=== PATIENT | female | born 1960 | race Caucasian/White ===

== ENCOUNTER → 2022-07-07 06:20 | Outpatient (CLI) | payer MEDICARE, SELFPAY ==
[2022-07-07 20:06] LABS: Alanine Aminotransferase 20 U/L (12-78); Albumin Level 4.1 g/dl (3.5-5.0); Albumin/Globulin Ratio 1.6 (1.1-1.8); Alkaline Phosphatase 118 U/L (38-126); Aspartate Amino Transferase 26 U/L (14-36); Bilirubin,Total 0.5 mg/dl (0.2-1.3); Blood Urea Nitrogen 10 mg/dl (7-17); Calcium 8.8 mg/dl (8.4-10.2); Carbon Dioxide 31 mmol/L (22.0-30.0); Chol/HDL Ratio 3.5 (1-3.5); Cholesterol 170 mg/dl (140-200); Estimated Glomerular Filt Rate 85 ml/min (>60); GFR (African American) 103 ML/MIN (>60); Globulin 2.6 g/dL (1.3-3.2); Glucose 126 mg/dl (74-100); HDL Cholesterol 48 mg/dl (40-60); Potassium 4.5 mmoL/L (3.5-5.1); Sodium 140 mmol/L (136-145); Total Protein,Serum 6.7 g/dl (6.3-8.2); Triglycerides 94 mg/dl (30-150); VLDL Cholesterol 19 mg/dL (0-40)
[2022-07-07 20:17] LABS: Direct LDL Cholesterol 99.16 mg/dL (100-129)
[2022-07-07 20:27] LABS: Anion Gap 13.5 mEq/L (5-15); Chloride 100 mmol/L (98-107)
[2022-07-07 20:33] LABS: Basophils # 0.1 K/mm3 (0-0.2); Basophils % 1.1 % (0.1-2.0); Eosinophils # 0.4 K/mm3 (0.0-0.4); Eosinophils % 5.1 % (0.1-12.0); Hematocrit 44.1 % (37.0-47.0); Hemoglobin 13.7 g/dL (12.2-16.2); Lymphocytes # 1.8 K/mm3 (0.7-4.5); Lymphocytes % 22.9 % (10-50); Mean Corpuscular HGB Conc 31.1 g/dL (31.8-35.4); Mean Corpuscular Hemoglobin 27.9 pg (27.0-31.2); Mean Corpuscular Volume 89.7 fl (81-99); Mean Platelet Volume 9.9 fl (7.4-10.4); Monocytes # 0.4 K/mm3 (0.1-1.0); Monocytes % 5.5 % (1.7-9.3); Neutrophils # 5.1 K/mm3 (1.8-7.8); Neutrophils % 65.3 % (37.0-80.0); Platelet Count 358 K/mm3 (142-424); Red Blood Count 4.92 M/mm3 (4.20-5.40); Red Cell Distribution Width 15.1 % (11.5-17.5); White Blood Count 7.9 K/mm3 (4.8-10.8)
[2022-07-07 21:01] LABS: Thyroid Stimulating Hormone 2.46 uIU/mL (0.465-4.68)
[2022-07-07 22:13] LABS: Hemoglobin A1C 5.9 % (4.0-6.0)
== END ==
PROVIDERS: PCP Family Medicine; Visit Provider Family Medicine
DX: E11.9 Type 2 diabetes mellitus without complications (principal); E78.5 Hyperlipidemia, unspecified; Z79.84 Long term (current) use of oral hypoglycemic drugs
CPT/HCPCS: 80053; 80061; 83036; 84443; 85025

== ENCOUNTER → 2022-11-04 09:20 | Outpatient (CLI) | payer MEDICARE, SELFPAY ==
[2022-11-04 19:24] LABS: Creatinine,Urine Random 172 mg/dL (Not Estab.); Microalbumin/Creatinine Ratio 13.6
== END ==
PROVIDERS: PCP Family Medicine; Visit Provider Family Medicine
DX: E11.9 Type 2 diabetes mellitus without complications (principal); E03.9 Hypothyroidism, unspecified; E78.5 Hyperlipidemia, unspecified; L30.9 Dermatitis, unspecified; Z79.84 Long term (current) use of oral hypoglycemic drugs; Z79.899 Other long term (current) drug therapy
CPT/HCPCS: 82043; 82570

== ENCOUNTER → 2023-05-05 23:27 | Outpatient (CLI) | payer MEDICARE, MEDICAID, SELFPAY ==
[2023-05-05 16:29] LABS: Basophils % 0.6 % (0.1-2.0); Eosinophils # 0.4 K/mm3 (0.0-0.4); Eosinophils % 4.8 % (0.1-12.0); Hematocrit 42.4 % (37.0-47.0); Lymphocytes # 1.7 K/mm3 (0.7-4.5); Lymphocytes % 22.1 % (10-50); Mean Corpuscular HGB Conc 30.7 g/dL (31.8-35.4); Mean Corpuscular Hemoglobin 26.8 pg (27.0-31.2); Mean Corpuscular Volume 87.4 fl (81-99); Mean Platelet Volume 9.4 fl (7.4-10.4); Monocytes # 0.4 K/mm3 (0.1-1.0); Monocytes % 5.3 % (1.7-9.3); Neutrophils # 5.1 K/mm3 (1.8-7.8); Neutrophils % 67.2 % (37.0-80.0); Platelet Count 288 K/mm3 (142-424); Red Blood Count 4.86 M/mm3 (4.20-5.40); White Blood Count 7.6 K/mm3 (4.8-10.8)
[2023-05-05 16:32] LABS: Alanine Aminotransferase 19 U/L (12-78); Albumin Level 4.1 g/dl (3.5-5.0); Albumin/Globulin Ratio 1.7 (1.1-1.8); Alkaline Phosphatase 96 U/L (38-126); Anion Gap 9.4 mEq/L (5-15); Aspartate Amino Transferase 23 U/L (14-36); Bilirubin,Total 0.6 mg/dl (0.2-1.3); Blood Urea Nitrogen 10 mg/dl (7-17); Calcium 8.8 mg/dl (8.4-10.2); Carbon Dioxide 31 mmol/L (22.0-30.0); Chloride 105 mmol/L (98-107); Chol/HDL Ratio 2.8 (1-3.5); Cholesterol 148 mg/dl (140-200); Estimated Glomerular Filt Rate 101 ml/min (>60); GFR (African American) 122 ML/MIN (>60); Globulin 2.4 g/dL (1.3-3.2); Glucose 120 mg/dl (74-100); HDL Cholesterol 52 mg/dl (40-60); Potassium 4.4 mmoL/L (3.5-5.1); Sodium 141 mmol/L (136-145); Total Protein,Serum 6.5 g/dl (6.3-8.2); Triglycerides 61 mg/dl (30-150); VLDL Cholesterol 12 mg/dL (0-40)
[2023-05-05 16:44] LABS: Direct LDL Cholesterol 83.21 mg/dL (100-129)
[2023-05-05 17:06] LABS: Thyroid Stimulating Hormone 5.06 uIU/mL (0.465-4.68)
[2023-05-05 18:20] LABS: Microalbumin/Creatinine Ratio 14.9
[2023-05-05 18:23] LABS: Creatinine,Urine Random 138 mg/dL (Not Estab.)
[2023-05-05 19:54] LABS: Hemoglobin A1C 6.1 % (4.0-6.0)
== END ==
PROVIDERS: PCP Family Medicine; Visit Provider Family Medicine
DX: I10 Essential (primary) hypertension (principal); E11.9 Type 2 diabetes mellitus without complications; Z00.00 Encounter for general adult medical examination without abnormal findings; E03.9 Hypothyroidism, unspecified; Z79.84 Long term (current) use of oral hypoglycemic drugs
CPT/HCPCS: 80053; 80061; 82043; 82570; 83036; 84443; 85025

== ENCOUNTER → 2023-05-12 10:27 | Outpatient (CLI) | payer MEDICARE, MEDICAID, SELFPAY ==
--- NOTE | 2023-05-12 10:27 | MM_ITS ---
PROCEDURE INFORMATION: Exam: MG Bilateral Screening 3D Mammography Exam date and time: 05/12/2023 10:18 AM Age: 63 years old Clinical indication: Screening mammogram. No personal or family history of breast cancer TECHNIQUE: Imaging protocol: Bilateral Screening tomosynthesis and 2D mammography including computer-aided detection (CAD) when performed. COMPARISON: No relevant prior studies available. FINDINGS: MAMMOGRAPHY: Breast composition: The breast is heterogeneously dense, which may obscure small masses. Mass: None. Architectural distortion: No new or suspicious architectural distortion. Calcifications: No new or suspicious calcifications are present Asymmetric density: No new or suspicious asymmetric density is present Skin thickening: None. Axillary adenopathy: None. IMPRESSION: No mammographic evidence of malignancy. Recommend annual screening mammography unless otherwise clinically indicated. ASSESSMENT: BI-RADS category 1: Negative
== END ==
PROVIDERS: PCP Family Medicine; Visit Provider Family Medicine
DX: Z12.31 Encounter for screening mammogram for malignant neoplasm of breast (principal)
CPT/HCPCS: 77063; 77067

== ENCOUNTER → 2023-07-09 23:27 | Outpatient (CLI) | payer MEDICARE, MEDICAID, SELFPAY ==
[2023-07-09 17:37] LABS: Thyroid Stimulating Hormone 3.93 uIU/mL (0.465-4.68)
== END ==
PROVIDERS: PCP Family Medicine; Visit Provider Family Medicine
DX: E03.9 Hypothyroidism, unspecified (principal)
CPT/HCPCS: 84443

== ENCOUNTER → 2023-10-12 07:26 | Outpatient (CLI) | payer MEDICARE, MEDICAID, SELFPAY ==
[2023-10-12 17:03] LABS: Hemoglobin A1C 6.1 % (4.0-6.0)
[2023-10-12 17:30] LABS: Thyroid Stimulating Hormone 2.18 uIU/mL (0.465-4.68)
== END ==
PROVIDERS: PCP Family Medicine; Visit Provider Family Medicine
DX: E11.9 Type 2 diabetes mellitus without complications (principal); Z79.84 Long term (current) use of oral hypoglycemic drugs
CPT/HCPCS: 83036; 84443

== ENCOUNTER 2024-02-04 18:00 | Outpatient (CLI) | payer MEDICARE, MEDICAID, SELFPAY ==
[2024-02-04 16:46] LABS: Chol/HDL Ratio 2.9 (1-3.5); Cholesterol 125 mg/dl (140-200); HDL Cholesterol 43 mg/dl (40-60); Triglycerides 70 mg/dl (30-150); VLDL Cholesterol 14 mg/dL (0-40)
[2024-02-04 16:58] LABS: Direct LDL Cholesterol 63.13 mg/dL (100-129)
[2024-02-04 17:10] LABS: Hemoglobin A1C 6.4 % (4.0-6.0)
[2024-02-04 17:16] LABS: Creatinine,Urine Random 140 mg/dL (Not Estab.)
[2024-02-04 17:18] LABS: Microalbumin/Creatinine Ratio 10.4; Thyroid Stimulating Hormone 1.87 uIU/mL (0.465-4.68)
== END 2024-02-04 23:59 | disposition home or self-care (01) ==
LOC: LAB.DROPOF 02-05 08:58
PROVIDERS: PCP Family Medicine; Visit Provider Family Medicine
DX: E11.9 Type 2 diabetes mellitus without complications (principal); E03.9 Hypothyroidism, unspecified
CPT/HCPCS: 80061; 82043; 82570; 83036; 84443

== ENCOUNTER 2024-05-05 16:31 | Outpatient (CLI) | payer MEDICARE, MEDICAID, SELFPAY ==
[2024-05-05 17:00] LABS: Basophils # 0.1 K/mm3 (0-0.2); Basophils % 0.7 % (0.1-2.0); Eosinophils # 0.2 K/mm3 (0.0-0.4); Eosinophils % 2.9 % (0.1-12.0); Hematocrit 40.3 % (37.0-47.0); Lymphocytes # 1.7 K/mm3 (0.7-4.5); Lymphocytes % 24.8 % (10-50); Mean Corpuscular HGB Conc 32.2 g/dL (31.8-35.4); Mean Corpuscular Hemoglobin 28.4 pg (27.0-31.2); Mean Corpuscular Volume 88.3 fl (81-99); Mean Platelet Volume 9.5 fl (7.4-10.4); Monocytes # 0.4 K/mm3 (0.1-1.0); Monocytes % 5.9 % (1.7-9.3); Neutrophils # 4.4 K/mm3 (1.8-7.8); Neutrophils % 65.7 % (37.0-80.0); Platelet Count 266 K/mm3 (142-424); Red Blood Count 4.56 M/mm3 (4.20-5.40); Red Cell Distribution Width 15.4 % (11.5-17.5); White Blood Count 6.7 K/mm3 (4.8-10.8)
[2024-05-05 17:12] LABS: Alanine Aminotransferase 17 U/L (12-78); Albumin Level 4.2 g/dl (3.5-5.0); Albumin/Globulin Ratio 1.6 (1.1-1.8); Alkaline Phosphatase 112 U/L (38-126); Anion Gap 7.2 mEq/L (5-15); Aspartate Amino Transferase 19 U/L (14-36); Bilirubin,Total 0.7 mg/dl (0.2-1.3); Blood Urea Nitrogen 12 mg/dl (7-17); Calcium 9.2 mg/dl (8.4-10.2); Carbon Dioxide 31 mmol/L (22.0-30.0); Chloride 106 mmol/L (98-107); Chol/HDL Ratio 2.5 (1-3.5); Cholesterol 128 mg/dl (140-200); Estimated Glomerular Filt Rate 101 ml/min (>60); GFR (African American) 122 ML/MIN (>60); Globulin 2.7 g/dL (1.3-3.2); Glucose 117 mg/dl (74-100); HDL Cholesterol 51 mg/dl (40-60); Potassium 4.2 mmoL/L (3.5-5.1); Sodium 140 mmol/L (136-145); Total Protein,Serum 6.9 g/dl (6.3-8.2); Triglycerides 60 mg/dl (30-150); VLDL Cholesterol 12 mg/dL (0-40)
[2024-05-05 17:41] LABS: Thyroid Stimulating Hormone 2.08 uIU/mL (0.465-4.68)
[2024-05-05 18:44] LABS: Hemoglobin A1C 5.9 % (4.0-6.0)
== END 2024-05-05 23:59 | disposition home or self-care (01) ==
LOC: LAB.DROPOF 16:32
PROVIDERS: PCP Nurse Practitioner Family; Visit Provider Nurse Practitioner Family
DX: E11.9 Type 2 diabetes mellitus without complications (principal); E03.9 Hypothyroidism, unspecified
CPT/HCPCS: 80050; 80053; 80061; 83036; 84443; 85025

== ENCOUNTER 2024-11-04 10:50 | Outpatient (CLI) | payer MEDICARE, MEDICAID, SELFPAY ==
[2024-11-04 16:33] LABS: Basophils % 0.4 % (0.1-2.0); Eosinophils # 0.2 K/mm3 (0.0-0.4); Eosinophils % 2.5 % (0.1-12.0); Hematocrit 41.8 % (37.0-47.0); Lymphocytes # 1.5 K/mm3 (0.7-4.5); Mean Corpuscular HGB Conc 31.1 g/dL (31.8-35.4); Mean Corpuscular Hemoglobin 27.7 pg (27.0-31.2); Mean Corpuscular Volume 89.1 fl (81-99); Mean Platelet Volume 10.6 fl (7.4-10.4); Monocytes # 0.5 K/mm3 (0.1-1.0); Monocytes % 6.1 % (1.7-9.3); Neutrophils % 68.6 % (37.0-80.0); Platelet Count 288 K/mm3 (142-424); Red Blood Count 4.69 M/mm3 (4.20-5.40); Red Cell Distribution Width 14.3 % (11.5-17.5); White Blood Count 7.3 K/mm3 (4.8-10.8)
[2024-11-04 16:48] LABS: Hemoglobin A1C 6.1 % (4.0-6.0)
[2024-11-04 17:01] LABS: Alanine Aminotransferase 20 U/L (12-78); Albumin Level 4.4 g/dl (3.5-5.0); Alkaline Phosphatase 100 U/L (38-126); Anion Gap 14.5 mEq/L (5-15); Aspartate Amino Transferase 26 U/L (14-36); Bilirubin,Total 0.8 mg/dl (0.2-1.3); Blood Urea Nitrogen 10 mg/dl (7-17); Calcium 9.3 mg/dl (8.4-10.2); Carbon Dioxide 29 mmol/L (22.0-30.0); Chloride 101 mmol/L (98-107); Chol/HDL Ratio 2.3 (1-3.5); Cholesterol 123 mg/dl (140-200); Estimated Glomerular Filt Rate 101 ml/min (>60); GFR (African American) 122 ML/MIN (>60); Globulin 2.2 g/dL (1.3-3.2); Glucose 83 mg/dl (74-100); HDL Cholesterol 53 mg/dl (40-60); Potassium 4.5 mmoL/L (3.5-5.1); Sodium 140 mmol/L (136-145); Total Protein,Serum 6.6 g/dl (6.3-8.2); Triglycerides 70 mg/dl (30-150); VLDL Cholesterol 14 mg/dL (0-40)
[2024-11-04 17:12] LABS: Direct LDL Cholesterol 60.09 mg/dL (100-129)
[2024-11-04 17:18] LABS: 25-OH Vitamin D, Total 24.8 ng/mL (30-100)
[2024-11-04 17:26] LABS: Creatinine,Urine Random 101 mg/dL (Not Estab.)
[2024-11-04 17:33] LABS: Thyroid Stimulating Hormone 2.84 uIU/mL (0.465-4.68)
== END 2024-11-04 23:59 | disposition home or self-care (01) ==
LOC: LAB.DROPOF 11-07 10:52
PROVIDERS: PCP Nurse Practitioner Family; Visit Provider Nurse Practitioner Family
DX: E11.9 Type 2 diabetes mellitus without complications (principal); E55.9 Vitamin D deficiency, unspecified; E78.5 Hyperlipidemia, unspecified; E03.9 Hypothyroidism, unspecified; R03.0 Elevated blood-pressure reading, without diagnosis of hypertension
CPT/HCPCS: 80053; 80061; 82043; 82306; 82570; 83036; 84443; 85025

== ENCOUNTER 2024-11-11 10:25 | Outpatient (CLI) | payer MEDICARE, MEDICAID, SELFPAY ==
--- NOTE | 2024-11-11 10:26 | MM_ITS ---
PROCEDURE INFORMATION: Exam: MG Bilateral Screening 3D Mammography Exam date and time: 11/11/2024 10:12 AM Age: 64 years old Clinical indication: Screening examination. TECHNIQUE: Imaging protocol: Bilateral Screening tomosynthesis and 2D mammography including computer-aided detection (CAD) when performed. COMPARISON: MG MM DIG SCREENING MAMM BI W/CAD 05/12/2023 10:18 AM FINDINGS: MAMMOGRAPHY: Breast composition: There are scattered areas of fibroglandular density. Mass: No suspicious masses. Architectural distortion: No suspicious distortion. Calcifications: No suspicious calcifications. Asymmetric density: Questionable 1 cm asymmetry in the medial right breast, middle depth, only well seen on CC frame 13. Skin thickening: None. Axillary adenopathy: None. IMPRESSION: 1. Recommend right breast spot compression CC/MLO view, full field true lateral view and ultrasound for further evaluation of a questionable asymmetry in the medial right breast. 2. No definite mammographic evidence of malignancy in the left breast. ASSESSMENT: BI-RADS Category 0: Incomplete- Need Additional Imaging Evaluation.
== END 2024-11-11 23:59 | disposition home or self-care (01) ==
LOC: RAD 10:26
PROVIDERS: PCP Nurse Practitioner Family; Visit Provider Nurse Practitioner Family
DX: Z12.31 Encounter for screening mammogram for malignant neoplasm of breast (principal)
CPT/HCPCS: 77063; 77067

== ENCOUNTER 2024-12-01 12:40 | Outpatient (CLI) | payer OTHER, MEDICAID, SELFPAY ==
--- NOTE | 2024-12-01 12:40 | US_ITS ---
PROCEDURE INFORMATION: Exam: US Right Breast, Complete MG Right Diagnostic Breast Tomosynthesis Exam date and time: 12/01/2024 1:05 PM Age: 64 years old Clinical indication: Callback from screening for right breast asymmetry TECHNIQUE: Imaging protocol: Complete ultrasound of all four quadrants of the right breast and the retroareolar regions, including ultrasound of the axilla when performed. Right Diagnostic tomosynthesis and 2D mammography including computer-aided detection (CAD) when performed. Unilateral or bilateral exam. COMPARISON: 1. MG MM DIG SCREENING MAMM BI W/CAD 11/11/2024 10:12 AM 2. MG MM DIG SCREENING MAMM BI W/CAD 05/12/2023 10:18 AM FINDINGS: MAMMOGRAPHY: Breast composition: There are scattered areas of fibroglandular density. Breast mammogram findings: Right breast spot compression and 90 degree lateral tomosynthesis views were obtained. There is a persistent equal density irregular mass with surrounding spiculation in the medial right breast measuring roughly 1 cm.Elsewhere, there are no suspicious masses or calcifications in the partially visualized breast. No abnormal lymph nodes in the partially visualized axilla. ULTRASOUND: Breast ultrasound findings: Right breast ultrasound: At 4 o'clock 2 cm from the nipple there is an irregular hypoechoic mass measuring 0.7 x 0.6 x 1.0 cm corresponding to the mammographically questioned. Immediately adjacent to this is an indeterminate similar-appearing structure measuring 0.4 cm. Benign simple cyst at 9 o'clock measuring 0.4 cm. No abnormal lymph nodes in the axilla IMPRESSION: Irregular right breast mass 4 o'clock is suspicious. There is similar-appearing structure immediately adjacent to the index lesion measuring 0.4 cm. Recommend ultrasound-guided needle biopsy. ASSESSMENT: BI-RADS Category 4: Suspicious.
== END 2024-12-01 23:59 | disposition home or self-care (01) ==
LOC: RAD 12:40
PROVIDERS: PCP Nurse Practitioner Family; Visit Provider Nurse Practitioner Family
DX: R92.8 Other abnormal and inconclusive findings on diagnostic imaging of breast (principal)
CPT/HCPCS: 76641; 77061; 77065; G0279

== ENCOUNTER 2025-01-02 07:30 | Outpatient (CLI) | payer OTHER, MEDICAID, SELFPAY | END 2025-01-02 23:59 | disposition home or self-care (01) | LOC: RAD 07:31 | PROVIDERS: PCP Nurse Practitioner Family; Visit Provider Nurse Practitioner Family | DX: R92.8 Other abnormal and inconclusive findings on diagnostic imaging of breast (principal) | CPT/HCPCS: 19083; 77065; C2618 ==

== ENCOUNTER 2025-01-13 10:02 | Outpatient (CLI) | payer OTHER, MEDICAID, SELFPAY ==
--- NOTE | 2025-01-13 10:23 | ECG_ITS ---
APPROVED REPORT Exam: Resting ECG HR:70 bpm ECG Measurements Heart Rate 70 AXES MA 147 P 32 QRSd 85 QRS 31 QT 401 T 52 QTc 422 Conclusion SINUS RHYTHM LOW QRS VOLTAGE IN PRECORDIAL LEADS [QRS DEFLECTION < 1.0 mV IN CHEST LEADS] BORDERLINE ECG UNCONFIRMED REPORT Electronically signed by : Albin Montiel MD 01/14/2025 19:34:35
[2025-01-13 10:36] LABS: Basophils # 0.1 K/mm3 (0-0.2); Basophils % 0.7 % (0.1-2.0); Eosinophils # 0.1 K/mm3 (0.0-0.4); Eosinophils % 1.3 % (0.1-12.0); Hematocrit 40.3 % (37.0-47.0); Hemoglobin 13.1 g/dL (12.2-16.2); Lymphocytes # 1.3 K/mm3 (0.7-4.5); Lymphocytes % 17.1 % (10-50); Mean Corpuscular HGB Conc 32.5 g/dL (31.8-35.4); Mean Corpuscular Hemoglobin 27.9 pg (27.0-31.2); Mean Corpuscular Volume 85.9 fl (81-99); Mean Platelet Volume 10.3 fl (7.4-10.4); Monocytes # 0.5 K/mm3 (0.1-1.0); Monocytes % 6.2 % (1.7-9.3); Neutrophils # 5.5 K/mm3 (1.8-7.8); Neutrophils % 72.9 % (37.0-80.0); Platelet Count 289 K/mm3 (142-424); Red Blood Count 4.69 M/mm3 (4.20-5.40); Red Cell Distribution Width 13.8 % (11.5-17.5); White Blood Count 7.6 K/mm3 (4.8-10.8)
[2025-01-13 10:40] LABS: Anion Gap 9.4 mEq/L (5-15); Blood Urea Nitrogen 8 mg/dl (7-17); Calcium 9.1 mg/dl (8.4-10.2); Carbon Dioxide 30 mmol/L (22.0-30.0); Chloride 105 mmol/L (98-107); Estimated Glomerular Filt Rate 101 ml/min (>60); GFR (African American) 122 ML/MIN (>60); Glucose 114 mg/dl (74-100); Potassium 4.4 mmoL/L (3.5-5.1); Sodium 140 mmol/L (136-145)
== END 2025-01-13 23:59 | disposition home or self-care (01) ==
LOC: PREOP 10:03
PROVIDERS: PCP Family Medicine; Visit Provider Surgery
DX: Z01.810 Encounter for preprocedural cardiovascular examination (principal); C50.911 Malignant neoplasm of unspecified site of right female breast; R94.31 Abnormal electrocardiogram [ECG] [EKG]
CPT/HCPCS: 80048; 85025; 93005

== ENCOUNTER 2025-02-02 08:12 | Outpatient (CLI) | payer OTHER, MEDICAID, SELFPAY ==
[2025-02-02 18:07] LABS: 25-OH Vitamin D, Total 47.7 ng/mL (30-100)
== END 2025-02-02 23:59 | disposition home or self-care (01) ==
LOC: LAB.DROPOF 02-03 08:47
PROVIDERS: PCP Nurse Practitioner Family; Visit Provider Nurse Practitioner Family
DX: E55.9 Vitamin D deficiency, unspecified (principal); E11.9 Type 2 diabetes mellitus without complications; Z79.84 Long term (current) use of oral hypoglycemic drugs
CPT/HCPCS: 82306; 83036

== ENCOUNTER 2025-02-10 07:33 | Day surgery (SDC) | payer OTHER, MEDICAID, SELFPAY ==
[2025-01-13 12:44] VITALS: BMI 30.6
[2025-02-10] VITALS (10 sets, daily range): BP systolic 148–174; BP diastolic 78–91; PULSE 92–104; RESP 14–18; TEMP 35.9–36.7; O2SAT 93–97
--- NOTE | 2025-02-10 | MM_ITS ---
FINAL REPORT CLINICAL HISTORY: s/p needle loc in ultrasound, specimen from OR FINDINGS: Specimen radiograph HISTORY: Needle localization for breast cancer FINDINGS: Specimen radiograph shows abnormal density adjacent to the breast biopsy marker clip and hook wire well contained within the specimen. IMPRESSION: Specimen radiograph confirms removal of lesion of interest along with the biopsy marker clip Authenticated and ERN
[2025-02-10] MEDS: 0.9 % SODIUM CHLORIDE 1000ML 1,000 ML 25 ML IV (08:11)
--- NOTE | 2025-02-10 08:18 | P.PNANES_ITS ---
[facility] Disclaimer: The information contained in this section may have been updated after the patient was seen, as this information can be updated by other users. Medical History HLD (hyperlipidemia) Osteoarthritis Hypothyroidism Diabetes mellitus Surgical History History of delivery History of dental surgery Family History Father Heart attack Brother Heart attack Diabetes Hypertension Social History Smoking Status: Never smoker alcohol intake: never substance use type: denies use current occupational status: unemployed Travel in the last 8 weeks: None [facility] Anesthesia Checklist Patient Identification Patient Identification: Verbal (Name & ) Structural Data Admitted From: Home Planned Operative Procedure/s: Right breast biopsy, sentinel lymph node Consent for Planned Operative Procedure(s) Verified: Yes Verified Documents: Surgical Consent NPO Status Verified Time NPO: 00:00 Chart Verification Results Verified: CBC and H & H Additional verifications Fingerstick Blood Glucose: 123 Patient : No Anesthesia Reactions: No Hx Blood Transfusions: No Blood Transfusion Reaction: No Cephalosporin Allergy: No Airway Assessment Mallampati Score:: Class II C-Spine Mobility Assessed: Yes Dentition: Edentulous Neurological Assessment Level of Consciousness: Awake, Alert and Appropriate Hx Seizures: No Numbness or tingling in extremities: No Anesthesia Plan Anesthesia Risk discussed: Yes Anesthesia Plan: Verified ASA Class: II Anesthesia Type: General
--- NOTE | 2025-02-10 08:30 | US_ITS ---
FINAL REPORT CLINICAL HISTORY: Rt breast cancer -- RT NEEDLE LOC -- DR DENNISE GONSALEZ --4:00 FINDINGS: Ultrasound-guided hookwire localization procedure HISTORY: Breast cancer. Request for localization of breast lesion/biopsy marker. FINDINGS: Abnormality of interest was localized within the right breast at approximately 4:00 with a small echogenic focus presumably representing a biopsy marker clip. Using sterile technique and local anesthesia a 7 cm Kopan's needle was directed toward the lesion of interest from a lateral approach. The portion of the wire was noted to be positioned within the mass. Marker was placed on the skin denoting the location of the lesion separate from the hook wire entry site. Post wire localization mammogram showed the required to be in good position immediately adjacent to the biopsy marker clip. IMPRESSION: Technically successful ultrasound-guided wire localization of right breast mass and biopsy marker clip Authenticated and ERN
--- NOTE | 2025-02-10 09:00 | NM_ITS ---
FINAL REPORT CLINICAL HISTORY: Rt breast cancer FINDINGS: SENTINEL NODE INJECTION HISTORY: Right breast cancer Attending radiologist: Dr. Milian Physician Automotive Service Advisor: Sukhdev Thomas PA-C FINDINGS: After informed consent was obtained and time-out procedure performed, approximately 1.55 mCi of technetium 99m sulfur colloid was injected intradermally into the right breast. Injections were performed in a periareolar fashion. No films were obtained during this procedure. The patient tolerated the procedure with no immediate complications. IMPRESSION: Lisle node injection of the right breast as discussed above. Reviewed, Interpreted and Dictated by Zhanna Milian MD Transcribed by TE Martini Authenticated and [facility]
--- NOTE | 2025-02-10 09:23 | MM_ITS ---
FINAL REPORT CLINICAL HISTORY: s/p needle loc in ultrasound FINDINGS: RIGHT DIGITAL MAMMOGRAPHY CLINICAL INDICATION: Right breast cancer. Requires localization procedure. TECHNIQUE: Right standard views were obtained with 2-D digital acquisitions. COMPARISON: Recent preoperative screening mammogram DENSITY: There are scattered areas of fibroglandular density FINDINGS: The hookwire is seen in good position adjacent to a biopsy marker clip located at 4:00. There is associated focal asymmetry. IMPRESSION: Successful wire localization of a known left breast cancer BI-RADS 6: Known biopsy proven cancer. RECOMMENDED FOLLOW-UP: Surgical follow-up Authenticated and ERN
[2025-02-10] MEDS: TC99M SULF.COLLOID;1 DOSE (UP TO 20 MCI) IV (09:30)
[2025-02-10] MEDS: METHYLENE BLUE 0.5% 10ML AMPULE 50 MG IV (10:28)
[2025-02-10] MEDS: LIDOCAINE 1% 20ML MDV 20 ML (10:28)
[2025-02-10] MEDS: CEFAZOLIN SODIUM 2 GM in 0.9 % SODIUM CHLORIDE 100 ML IV (10:30)
--- NOTE | 2025-02-10 11:48 | EXP.COCOPNOT ---
Date of procedure: 02/10/25 Pre-op Diagnosis:: Right breast cancer Post-op Diagnosis:: Same Procedure performed:: Right needle-localized excisional breast biopsy Right axillary sentinel lymph node biopsy Surgeon:: Kaushik Landis MD Anesthesia: LMA Estimated blood loss (mL): 15 Operative findings:: [place] lymph node with excellent radioisotope uptake [place] node target count 11,213 Minimal background noted after sentinel node excised Radiographic confirmation of complete breast lesion removal Operative note:: After informed consent was obtained the patient was taken to the radiology suite. A localization needle was placed in position. Please see separate radiology report for detail. She then underwent injection of radioisotope. Please see separate report for detail. She was then transferred to the operative suite after appropriate delay to allow for radioisotope uptake. Her right breast and axillary region was prepped and draped in a sterile fashion. After infiltration with local anesthetic incision was made overlying the point of maximal uptake confirmed via the neoprobe device. The underlying subcutaneous tissue was dissected with a combination of sharp dissection and electrocautery. A targeted node/nodes was carefully elevated and transected from surrounding tissue utilizing electrocautery. The transected tissue had a target count of 11,213. The neoprobe was placed into the operative wound. Minimal background noted. The deep subcutaneous tissue was reapproximated with interrupted Vicryl and skin was then closed with 4-0 Monocryl in a running subcuticular manner. Dressings were applied. Attention was then turned to the breast lesion. A subareolar incision was made after infiltration of local anesthetic. A combination of sharp dissection and electrocautery was utilized to transect around the localization needle. The lesion was excised and passed off for both pathologic evaluation and radiographic confirmation. The lesion was marked for margin prior to it leaving the operative field. Non-dyed suture was utilized to willian the superior and lateral margins (short superior/long lateral). Dyed suture was utilized to willian the superficial and deep margins (short superficial/long deep). Note that confirmation was received from the radiology department that the lesion of interest was contained within the specimen. Electrocautery was utilized to achieve hemostasis. The wound base and margins were marked with metallic clips. The deep subcutaneous tissue was reapproximated with interrupted Vicryl and skin was closed with 3-0 Monocryl STRATAFIX in a subcuticular manner. Dressings were applied and the patient was transferred to recovery in stable condition. Condition: stable Disposition: PACU Specimens:: Right axillary sentinel lymph node (target count 11,213) Needle-localized right breast excisional biopsy Complications:: No immediate Breast Cancer SLNB Operation performed with curative intent: Yes Tracers used in non-neoadjuvant setting to identify nodes: Dye and Radioactive tracer Tracer used to identify nodes in neoadjuvant setting: N/A All nodes at end of dye-filled lymphatic channel removed: Yes All significantly radioactive nodes were removed: Yes All palpably suspicious nodes were removed: Yes Biopsy positive nodes marked prior to chemo were removed: N/A
--- NOTE | 2025-02-10 11:58 | EXP.ANES.I ---
[facility] Anesthesia Record Part I Anesthesia Record I Intake, IV Amount: 800 Hydration: Adequate Estimated blood loss (mL): 10 Urine output (mL): 0 Blood Pressure: 156/83 SaO2: 96 Pulse Rate: 96 Airway Patency: Patent Respiratory Rate: 18 Temperature: 98 F Patient is:: Awake and Stable Stable to PACU at:: 12:03
--- NOTE | 2025-02-10 12:19 | SUR.PHASEI ---
pt glasses placed on patient at this time and pt removed from the bare hugger. no complaints/needs reported at this time
--- NOTE | 2025-02-10 12:26 | SUR.PHASEI ---
pt glucose 126 at this time. denies any pain
[2025-02-10 12:32] LABS: POC Glucose,Bedside 126 (70-110)
--- NOTE | 2025-02-10 13:34 | EXP.ANES.II ---
[facility] Anesthesia Record Part II Anesthesia Record Part II Discharge Time: 12:25 Destination: Surgical Day Care (OP Surgery) PACU nurse assessment reviewed?: Yes Patient Condition:: Good Anesthesia Complications:: None Swallowing reflex intact?: Yes Airway Patency: Patent Cyanosis?: No Blood Pressure: 158/89 SaO2: 94 Respiratory Rate: 15 Pulse Rate: 101 Temperature: 98.1 F Mental Status: Alert & Oriented Pain level:: 0 Nausea and/or vomitting:: None Intake, IV Amount: 0 Hydration: Adequate
[2025-02-10 14:52] LABS: POC Glucose,Bedside 124 (70-110)
== END 2025-02-10 13:07 | disposition home or self-care (01) ==
PROVIDERS: PCP Nurse Practitioner Family; Visit Provider Surgery
PROC: (CPT 19125; principal; 2025-02-10 09:10)
DX: D05.11 Intraductal carcinoma in situ of right breast (principal); E11.9 Type 2 diabetes mellitus without complications; E03.9 Hypothyroidism, unspecified; Z79.84 Long term (current) use of oral hypoglycemic drugs; Z79.899 Other long term (current) drug therapy
CPT/HCPCS: 19125; 38525; 19285; 38792; 76098; 77061; 77065; 82962; 88307; 96374; A9541; G0279; J0690; J1100; J1200; J2003; J2371; J2405; J2704; J3010; J7030

== ENCOUNTER 2025-04-06 09:01 | Outpatient (CLI) | payer OTHER, MEDICAID, SELFPAY ==
--- OUTSIDE RECORDS SUMMARY | 2025-04-06 09:12 | XMS_ITS | Data Portability ---
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 She is agreeable to receive postoperative radiation therapy with hypofractionation technique to treat the entire breast with high axilla for a dose of 4256 cGy to be delivered by 16 fractions by 3D planning to be followed by a boost to lumpectomy site for an additional 1000 cGy to be delivered by 5 fractions by 3D planning. To be followed by [facility] for 5 years. Patient was told about side effects including skin irritation possible dry or moist desquamation possibility of scar tissue rarely rib fractions or 2nd malignancy with 3D planning minimize radiation to the right lung prognosis good. Interview and review of records lasted for 60 minutes. Thanks for allowing us participate in the care of this pleasant patient. [email or web address] Not available 04/04/2025 13:52:27 Plan of Treatment Reminders Order Date Submit Date Provider Last Modified By Organization Details Last Modified Time Details Appointments None recorded. Lab None recorded. Referral oncology patient navigator 2024 025 ROBINSON Bianchi Oncology Nurse Navigator, [address] [place] [address] , [address], [place], [address], 5 15:43:54 Procedures None recorded. Surgeries None recorded. Imaging None recorded. Medication Orders None recorded. Patient TargetsNo targets recorded. Patient InstructionsNo instructions recorded. Reason for Referral Oncology Patient Navigator f or Malignant neoplasm of lower inner quadrant of breast Referring Physician: Tad Vail, Radiation Oncology, Encounter Date: 04/04/2025 Problems Name Problem SNOMED Code Status Onset Date Resolution Date Notes Provider Name and Address Organization Details Recorded Time Malignant neoplasm of lower inner quadrant of breast 483588750 Active 025 Michelle Sherwood [facility] 5 15:06:56 Problem Notes None recorded. Medical Equipment None Reported. Allergies No known drug allergies Medications Name Sig Start Date Stop Date Status Note LastModified by Organization Details LastModified Time metformin 500 mg tablet Take 1 tablet every day by oral route. active Not Available Not Available No t Available cetirizine 10 mg tablet Take 1 tablet every day by oral route as needed. active Not Available Not Available No t Available atorvastat in 10 mg tablet Take 1 tablet every day by oral route. active Not Available Not Available No t Available hydrocodon e 5 mg-acetami nophen 325 mg tablet TAKE 1 TABLET EVERY 6 HOURS NEEDED FOR PAIN AFTER AN OPERATION active Not Available Not Available No t Available ondansetro n HCl 4 mg tablet TAKE 1 TABLET EVERY 6 HOURS NEEDED FOR NAUSEA AND VOMITING active Not Available Not Available No t Available omeprazole 40 mg capsule,de layed release Take 1 capsule every day by oral route. active Not Available Not Available No t Available famotidine 20 mg tablet Take 1 tablet every day by oral route. active Not Available Not Available No t Available oseltamivi r 75 mg capsule TAKE 1 CAPSULE EVERY 12 HOURS FOR 5 DAYS active Not Available Not Available No t Available promethazi ne 25 mg tablet TAKE 1 TABLET EVERY 4 HOURS NEEDED active Not Available Not Available No t Available Arimidex 1 mg tablet Take 1 tablet every day by oral route. active To begin after completio n of RTX for a total of 5 years Not Available Not Available Not Available montelukas t 10 mg tablet TAKE 1 TABLET 1 TIME EACH DAY active Not Available Not Available No t Available furosemide 20 mg tablet Take 1 tablet every day by oral route. active Not Available Not Available No t Available fluticason e propionate 50 mcg/actuat ion nasal spray,susp ension SPRAY 1 TIME IN EACH NOSTRIL 1 TIME EACH DAY active Not Available Not Available No t Available levothyrox ine 112 mcg tablet TAKE 1 TABLET ONCE A DAY IN THE MORNING ON AN EMPTY STOMACH active Not Available Not Available No t Available montelukas t TAKE 1 TAB PO DAILY active Not Available Not Available No t Available fluticason e propionate active Not Available Not Available N ot Available levothyrox ine 112 mcg capsule Take 1 capsule every day by oral route. active Not Available Not Available No t Available cholecalci ferol (vit D3) 137.5 mcg (5,500 unit)-vit K2 200 mcg tablet Take 1 tablet every day by oral route. active Not Available Not Available No t Available Vitals None Recorded Social History Question Answer Notes LastModified by [employer] Details LastModified Time Tobacco Smoking Status Never Smoker Michelle Gomez [facility] 04/03/2025 14:54:31 What Was The Date Of Your Most Recent Tobacco Screening? 04/03/2025 Information not available 04/03/2025 Has Tobacco Cessation Counseling Been Provided? No Information not available 04/03/2025 Sex: Unknown Functional Status Question Answer Note LastModified by [employer] Details LastModified Time Do you use any illicit or recreational drugs? No Information not available 04/03/2025 Do you or have you ever used any other forms of tobacco or nicotine? No Information not available 04/03/2025 What is your level of alcohol consumption? None Information not available 04/03/2025 Mental Status None recorded. Family History Relationship Description Onset Age of this Age Resolved Age Notes LastModified by Organization Details LastModified Time Father Myocardial infarction [email or web address] Not available 06/2025 14:52:45 Brother Myocardial infarction [email or web address] Not available 06/2025 14:52:45 Brother Diabetes mellitus nparkerrose Not available 06/2025 14:53:00 Brother Essential hypertension nparkerrose Not available 0 04/03/2025 14:53:29 Medical History Condition Response None Y Gynecological HistoryNo gynecological history recorded. Obstetrics History GPAL:G 0 P 0 0 0 0 Past Encounters Encounter ID Performer Location Encounter Start Date Encounter Closed Date Diagnosis/Indication Diagnosis SNOMED-CT Code Diagnosis ICD10 Code Diagnosis Note [id number] MD [facility] [address] [place] [phone] [id number] 04/04/2025 13:20:45 04/04/2025 15:19:32 Malignant neoplasm of lower inner quadrant of breast 172203543 C50.311 Z17.0 Health Concerns Section Related Observation LastModified by Organization Detai ls LastModified Time None Recorded Concern Status LastModified by Organization Details LastModified Time None Recorded Advance Directives Directive None Recorded Payers Insurance Date Sequence Insurance Name Policy Number Policy Frias Covered Member ID Frias Member ID Guarantor Name 04/04/2025 1 [employer] (MEDICARE REPLACEMENT/ ADVANTAGE - PPO) [id number] Deisy Huizar [id number] Deisy Huizar 04/04/2025 [place]IT[place] Deisy Huizar [id number] Deisy Huizar 04/04/2025 2 MEDICAID-[facility] CHOICES - FFS/TRADITIO NAL Deisy Huizar [id number] Deisy Huizar 04/04/2025 1 [employer] (MEDICARE REPLACEMENT/ ADVANTAGE - PPO) Deisy Huizar [id number] Deisy Huizar Notes Date Note Type Note Provider Name and Address Organization Details Recorded Time 04/04/2025 text/html Thanks Dr. Umanzor for referring this nice lady,A pleasant 65-year-old white for the last 25 years has 1 son and 2 daughters came with her oldest daughter she is here for consideration of postoperative radiation therapy to right breast.She had routine mammograms November 11, 2024 bilateral mammograms showed asymmetry inner lower quadrant of the left breast is confirmed by compression views on December 01, 2024 she underwent ultrasound-guided biopsy January 06, 2025 noted with invasive ductal carcinoma with mucinous features grade 2 6 mm in greatest dimension associated with low-grade DCIS ER 100% p.r. 100% HER2-Jong negative at 0 February 10, 2025 she underwent lumpectomy and sentinel node sampling by Dr. Ellison at [facility] final pathology revealed ductal carcinoma 1.4 cm in greatest dimension with intermediate grade DCIS margins negative 1 sentinel node biopsy negative stage pT1 see pN0 stage I A. Oncotype will score is 0 patient will be started on Arimidex after her radiation therapy to the right breast. She never smoked and does not drink alcohol. Had Cologuard every 3 years.Past history include hypercholesteremia type 2 diabetes hypothyroidism. 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,[address], [place], [address], [place] [facility] [place] 04/04/2025 13:53:18 OBGyn Episode No OBEpisode recorded.
--- OUTSIDE RECORDS SUMMARY | 2025-04-06 09:12 | XMS_ITS | Continuity of Care Document ---
Author Organization [place] - [facility] [place] & [facility] Address [address] [place] [address] Care Team Providers Care Cp Bleacher Operator Name Role Phone ELSA DRAKE Primary Care Provider TAD VAIL Radiation Oncologist ANITHA UMANZOR Hematology/Oncology [phone] Assessment Encounter Date Assessment Date Assessment LastModified [...] by 3D planning. To be followed by [facility] for 5 years. Patient was told about [...] 2024 025 ROBINSON Bianchi Oncology Nurse Navigator, [address] [place] [address] , [address], [place], [address], 5 15:43:54 Procedures None recorded. Surgeries None [...] neoplasm of lower inner quadrant of breast [id number] Active 025 Michelle Sherwood [facility] & [place] 5 15:06:56 Problem Notes None recorded. Medical [...] History Question Answer Notes LastModified by [employer] Details LastModified Time Tobacco Smoking Status Never Smoker Michelle Gomez [facility] 04/03/2025 14:54:31 What Was The Date Of Your Most Recent Tobacco Screening? 04/03/2025 Information not available 04/03/2025 Has Tobacco Cessation Counseling Been Provided? No Information not available 04/03/2025 Sex: Unknown Functional Status Question Answer Note LastModified by [employer] Details LastModified Time Do you use any [...] SNOMED-CT Code Diagnosis ICD10 Code Diagnosis Note [id number] MD [facility] [address] [place] [address] 04/04/2025 13:20:45 04/04/2025 15:19:32 Malignant neoplasm of lower inner quadrant of breast [id number] C50.311 Z17.0 Health Concerns Section Related Observation LastModified by Organization Detai ls LastModified Time None Recorded Concern Status LastModified by Organization Details LastModified Time None Recorded Payers Encounter Date Sequence Insurance Name Policy Number Policy Frias Covered Member ID Frias Member ID Guarantor Name 04/04/2025 2 MEDICAID-[facility] CHOICES - FFS/TRADITIO NAL Deisy Huizar [id number] Deisy Huizar 04/04/2025 1 [employer] (MEDICARE REPLACEMENT/ ADVANTAGE - PPO) [id number] Deisy Huizar [id number] Deisy Huizar Notes Date Note Type Note [...] sentinel node sampling by Dr. 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
--- NOTE | 2025-04-06 09:30 | XR_ITS ---
FINAL REPORT TECHNIQUE: Bone densitometry calculations of the lumbar spine and bilateral hips were obtained. CLINICAL HISTORY: evaluation for treatment, Recent breast cancer dx with lumpectomy C50.811 - Malignant neoplasm of overlapping sites of right female breast, Z17.0 - Estrogen receptor positive status ER+ COMPARISON: None FINDINGS: Using L1-4, the bone mineral density of the spine is 0.985 g/cm2, corresponding to T-score of -0.6. Using the left hip, the bone mineral density of the femoral neck is 0.650 g/cm2, corresponding to a T-score of -1.8. Using the right hip, the bone mineral density of the femoral neck is 0.667 g/cm?, corresponding to a T-score of -1.6. NOTE: T-score: Standard deviation compared with peak bone mass of young adult mean. *Following the recommendations of the International Society of Bone densitometry, classification of hip BMD is based on the lower of two T-scores; total hip or femoral neck. IMPRESSION: Diminished bone mineral density of the bilateral hips consistent with osteopenia. Normal bone mineral density of the lumbar spine. Reviewed, Interpreted and Dictated by Neil Crump MD Transcribed by Jolie Chi Authenticated and [facility]
== END 2025-04-06 23:59 | disposition home or self-care (01) ==
LOC: RAD 09:03
PROVIDERS: PCP Nurse Practitioner Family; Visit Provider Internal Medicine Medical Oncology
DX: M85.89 Other specified disorders of bone density and structure, multiple sites (principal); C50.811 Malignant neoplasm of overlapping sites of right female breast; Z17.0 Estrogen receptor positive status [ER+]
CPT/HCPCS: 77080